=== PATIENT | female | born 1995 | race Caucasian/White ===

== ENCOUNTER 2017-06-16 16:18 | Emergency (ER) | payer OTHER ==
[2017-06-16 16:41] VITALS: TEMP 36.8
[2017-06-16 16:46] VITALS: O2SAT 100
[2017-06-16 18:01] LABS: BLOOD UREA NITROGEN 13 mg/dl (7-18); BUN/CREATININE RATIO 25.1 (10-20); CARBON DIOXIDE 28 mmol/L (21-32); CHLORIDE 107 mmol/L (98-107); CREATININE 0.52 mg/dl (0.60-1.20); GLUCOSE 87 mg/dl (70-99); SODIUM 140 mmol/L (136-145)
[2017-06-16 18:11] LABS: PREG INTERNAL NEGATIVE QC NEG CLEAR BACKGROUND; PREG INTERNAL POSITIVE QC POS CONTROL LINE
--- NOTE | 2017-06-16 21:06 | EMERGENCY ROOM VISIT NOTE ---
History Report prepared by Adama: Melissa Bowen Under the Supervision of: Dr. Erick Starr M.D. First contact with patient: 16:24 Chief Complaint: ALCOHOL OVERDOSE Stated Complaint: ALCOHOL History of Present Illness The patient is a 21 year old female who presents to the Emergency Room with persistent alcohol intoxication starting CIRCUIT TESTER. The patient was brought to the ED by EMS. She was found unconscious in a parking lot. Her friend states that she had been drinking a lot of vodka. The history is limited due to the patient's intoxication. Source of History: EMS History Limited By: intoxication Onset: CIRCUIT TESTER Position: other (global) Quality: other (alcohol intoxication) Timing: other (persistent) Review of Systems Limited due to the patient's intoxication. Family History Unobtainable due to intoxication. Social History Alcohol Use: occasionally Current/Historical Medications Unable to Obtain Active Prescriptions or Reported Meds Physical Exam Vital Signs Date Time Temp Pulse Resp B/P (MAP) Pulse Ox O2 Delivery O2 Flow Rate FiO2 06/16/17 20:00 120 20 102/60 95 Room Air 06/16/17 18:00 99 18 101/64 100 Room Air 06/16/17 16:46 100 Room Air 06/16/17 16:41 36.8 81 18 92/53 100 Room Air 06/16/17 16:39 91 Physical Exam GENERAL: Intoxicated, sleeping, but arousable to verbal stimuli, well appearing , no distress, vomitus present on her face and on the bed HENT: Normocephalic, atraumatic. Oropharynx unremarkable. EYES: PERRL. Erythematous conjunctiva. Sclera non-icteric. NECK: Supple. No nuchal rigidity. FROM. RESPIRATORY: CTA CARDIAC: RRR GI/ABDOMEN: Soft, non distended. No tenderness to palpation. No rebound or guarding. No masses. RECTAL: Deferred. MUSCULOSKELETAL: No edema. No discoloration. Gross motor strength 5/5 bilaterally. NEURO: Altered sensorium. No sensory or motor deficits noted. Speech slurred. SKIN: No rash or jaundice noted. LYMPH: No adenopathy. Medical Decision & Procedures Laboratory Results 06/16/17 17:21 Test 06/16/17 17:21 06/16/17 17:55 Anion Gap 5.0 mmol/L (3-11) Estimated GFR () > 150.0 Estimated GFR (Non- 137.5 BUN/Creatinine Ratio 25.1 (10-20) Calcium Level 9.0 mg/dl (8.5-10.1) Human Chorionic Gonadotropin, Qual NEG (NEG) Ethyl Alcohol mg/dL 180.0 mg/dl (0-3) Bedside Glucose 93 mg/dl (70-90) Laboratory results reviewed by me ED Course 1618: The patient was evaluated in room A11A. A complete history and physical exam was performed. 1656: I reevaluated the patient. She is still sleeping. 2008: I reevaluated the patient. She is awake. She is calling for a ride. 2029: I reevaluated the patient. I discussed results and discharge instructions : she verbalized understanding and agreement. The patient is ready for discharge. Medical Decision Prior records/ancillary studies reviewed. Triage Nursing notes reviewed and agree them. Additional history obtained from EMS. The patient's history was concerning for altered mental status and a possible alcohol overdose. Differential diagnosis: Etiologies such as toxicologic, infection, hypoglycemia, electrolyte abnormalities, cardiac sources, intracerebral event, neurologic, as well as others were entertained. Physical examination: As above ER treatment provided: Monitoring Aspiration precautions The patient was frequently reassessed. Diagnostic interpretation by me: Cardiac monitoring did not reveal any evidence of dysrhythmia. The labs revealed normal chemistries. The patient's blood alcohol level was 180 mg/dL The patient's history was reviewed once they were more coherent and their intoxication cleared. The patient states they have been in good health recently and had no medical complaints. No additional concerning findings were noted. The patient complained of no symptoms to suggest assault. This appears to be related to an isolated overdose of alcohol. By the evaluation outlined above emergent etiologies such as trauma, infection , hypoglycemia, electrolyte abnormalities, cardiac sources, intracerebral event , neurologic,as well as others were deemed relatively unlikely. The patient was informed about the findings as listed above. All questions were answered and the patient was pleased with the treatment. Return instructions were outlined and the patient was discharged in stable condition once their mental status improved and a safe destination was confirmed. Outpatient prescription management: None Referral: The patient was referred back to their primary care physician for follow-up in 2 to 3 days for a recheck of their current condition. Blood Pressure Screening Patient's blood pressure: Normal blood pressure Blood pressure disposition: Did not require urgent referral Impression Primary Impression: Alcohol intoxication Scribe Attestation The scribe's documentation has been prepared under my direction and personally reviewed by me in its entirety. I confirm that the note above accurately reflects all work, treatment, procedures, and medical decision making performed by me. Departure Information Dispostion Home / Self-Care Prescriptions Unable to Obtain Active Prescriptions or Reported Meds Forms HOME CARE DOCUMENTATION FORM, IMPORTANT VISIT INFORMATION Patient Instructions Alcohol Abuse - [facility], Alcohol Intoxication - [facility], [facility]: [employer] Students and Alcohol Related Visits, My [facility] Additional Instructions Do not drive or work for 24 hours. Ibuprofen may be used for headache. Eat a healthy diet and drink plenty of fluids. Refrain from alcohol use until you are 21. Return to the emergency department for fevers, vomiting, abdominal pain, chest pain, passing out, or as needed. Follow-up with your primary care physician in 2 to 3 days for a recheck of your current condition.
[2017-06-16 21:47] VITALS: BP 106/66; PULSE 118; O2SAT 98
== END 2017-06-16 21:48 | disposition home or self-care (01) ==
LOC: C.EDA 16:25
DX: F10.129 Alcohol abuse with intoxication, unspecified (principal)